=== PATIENT | female | born 2000 | race African-American/Black ===

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

== ENCOUNTER 2022-11-21 13:01 | Day surgery (SDC) | payer OTHER ==
[2022-11-21] MEDS ORDERED: FERRIC CARBOXYMALTOSE 750 MG in SODIUM CHLORIDE 250 ML IVPB ONE (13:30)
[2022-11-21 15:36] VITALS: BP 112/62; PULSE 55; RESP 18; TEMP 98.1
== END 2022-11-21 15:39 | disposition home or self-care (01) ==
LOC: FINFUSION 13:01 → FM/S 13:04 → FINFUSION 15:39
PROVIDERS: ATTEND Family Medicine
PROC: 3E033GC Introduction of Other Therapeutic Substance into Peripheral Vein, Percutaneous Approach (ICD-10-PCS; principal; 2022-11-21)
DX: D50.9 Iron deficiency anemia, unspecified (principal)
CPT/HCPCS: 96365; J1439